=== PATIENT | male | born 1945 | race Caucasian/White ===

== ENCOUNTER → 2017-06-15 10:19 | Outpatient (CLI) | payer MEDICARE, SELFPAY ==
--- NOTE | 2017-06-15 08:00 | PET_ITS ---
EXAMINATION: FDG PET CT INDICATIONS: A 71-year-old male with history of mediastinal adenopathy, pulmonary nodularity. COMPARISON EXAMINATION: None available. INDEX LESION SIZE SUV INTERPRETATION Left upper posterolateral hemithorax pulmonary parenchyma 12.8 mm (frame 229) 2.6 Fulfills quantitative criteria for viable neoplasm, definitive histopathologic analysis is recommended Bilateral upper abdomen retrocrural soft tissue 11.0 mm largest (frame 170) 4.3 (max) Histopathologic investigation recommended secondary to the quantitative degree of uptake NON-INDEX LESION SIZE SUV INTERPRETATION Mediastinal structures, bilateral thoracic perihilum 30.7 mm largest (frame 205) 4.2 (max) Low likelihood of viable neoplasm secondary to prominent soft tissue calcification Right upper-mid abdominal retroperitoneum 37.4 mm largest (frame 148) 5.0 (max) Low likelihood of viable neoplasm secondary to prominent partially-calcified soft tissue Right inguinal region 1.8 Quantitative criteria for viable neoplasm are not fulfilled TECHNIQUE: Following the intravenous administration of 13.03 mCi of F-18 deoxyglucose via the right antecubital fossa, multiplanar image acquisitions of the neck, chest, abdomen and pelvis to level of mid thigh, obtained at one hour post radiopharmaceutical administration contemporaneously interpreted with the current CT of the neck, chest, abdomen and pelvis to level of mid thigh, dated 06/15/17 via coregistration reveal: SERUM GLUCOSE LEVEL: 108 mg/dl. HEIGHT: 72 inches. WEIGHT: 220 lbs. FINDINGS: 1. A nodular focus of increased glucose metabolism is demonstrated in the left upper posterolateral hemithorax anterior to a visualized ametabolic pleural effusion. The calculated maximum standard uptake value is 2.6. A corresponding noncalcified parenchymal density is visualized on review of CT of the thorax dated in the analogous location with a maximal axial diameter of 12.8 mm (transverse). 2. Multifocal increased glucose metabolism is defined in the superior-subcarinal mediastinum and bilateral thoracic perihilar regions generating a calculated maximum standard uptake value of 4.2. The maximal axial diameter of the largest metabolic, morphologic abnormality is approximately 30.7 mm (AP). Uptake corresponds to calcified soft tissue on review of CT of the thorax dated 06/15/17 in the analogous locations. 3. Several foci of increased glucose concentration are demonstrated in the upper abdomen, retrocrural in location on review of CT of the chest-abdomen dated 06/15/17 generating a calculated maximum standard uptake value of . The maximal axial diameter of the of largest noncalcified retrocrural soft tissue density on review of CT of the abdomen dated 06/15/17 is 11.0 mm (AP). 4. There are several foci of increased glucose metabolism manifest in the upper-mid abdominal retroperitoneum corresponding to partially-calcified soft tissue generating a calculated maximum standard uptake value of 5.0. The maximal axial diameter of the largest partially-calcified soft tissue density on review of CT of the abdomen dated 06/15/17 is 37.4 mm (AP). 5. Normal physiologic distribution of the radiopharmaceutical is apparent in the hepatic (2.5) and splenic parenchyma, both renal units, bladder and visualized intestinal tract. There is symmetric and preserved glucose metabolism noted in the visualized portion of the frontal, occipital, temporal and parietal lobes of the cerebral cortex, as well as cerebral hemispheres and basal ganglia. Prominent skeletal muscle and left ventricular myocardial distribution of the radiopharmaceutical concentration is noted. There is evidence of apparent visualization of the right-left hemidiaphragm. Mild increased glucose concentration is defined in the right inguinal region in a single nodular focus with a calculated standard uptake value of 1.8. Pertinent CT findings are as follows. CHEST: Bilateral hemithorax pleural effusions demonstrate no evidence of increased glucose metabolism. Atherosclerotic calcification is defined in the thoracic aorta. The maximal axial diameter of the ascending thoracic aorta is 42.1 mm (transverse). Coronary arterial calcification is observed. Emphysematous change is noted in the bilateral upper lung zones. ABDOMEN AND PELVIS: Atherosclerotic calcification is defined in the abdominal aorta without evidence of dilatation, aneurysm formation. Abdominal-pelvic arterial calcification is observed. Filter placement is noted in the inferior vena cava. There is an apparent large diastasis involving the anterior abdominal-pelvic wall. A visualized right, as well as right and left inguinal soft tissue densities demonstrate no evidence of quantitatively significant increased glucose metabolism. Apparent peripelvic cyst formation is defined in the left kidney with a maximal axial diameter of 58.6 mm. SKELETAL: Degenerative changes defined in the cervical, thoracic and lumbar spine demonstrate no evidence for glucose hypermetabolism. PET/PET/CT Tumor Base -Thigh Init IMPRESSION: 1. Increased glucose metabolism manifest in the left upper posterolateral hemithorax pulmonary parenchyma fulfills quantitative criteria for viable neoplasm with single-point technique. Definitive histopathologic analysis is recommended. (Warren et al, Annals of Internal Medicine, 138:724, 2003). 2. Facilitated glucose concentration visualized in the right upper abdomen corresponding to retrocrural soft tissue densities fulfills quantitative criteria for viable neoplasm with single-point technique. 3. Enhanced glucose concentration observed in the mediastinal structures, bilateral thoracic perihilum corresponding to multifocally calcified soft tissue is consistent with a lower likelihood of viable neoplastic transformation. 4. Augmented glucose concentration defined in the upper-mid abdominal retroperitoneum corresponding to partially-calcified soft tissue is consistent with a lower likelihood of viable neoplasm. 5. Subtle asymmetric increased glucose concentration observed in the right inguinal region does not fulfill quantitative criteria for viable neoplasm. Electronic Signature Ramirez Newton D.O. Electronically Signed: Ramirez Newton DO at 22:34 EST Tel , Service support ,
== END ==
PROVIDERS: Visit Provider Internal Medicine Pulmonary Disease
DX: R59.0 Localized enlarged lymph nodes (principal); R91.8 Other nonspecific abnormal finding of lung field
CPT/HCPCS: 78815; A9552; A4216

== ENCOUNTER → 2023-03-03 | Outpatient (CLI) | payer MEDICARE, MEDICAID, SELFPAY ==
--- NOTE | 2023-03-03 10:06 | US_ITS ---
STUDY: SUPERFICIAL ULTRASOUND - RIGHT CHEST. REASON FOR EXAM: Male, 77 years old. PLEURAL EFFUSION TECHNIQUE: A superficial ultrasound was performed with real-time and static beasley-scale imaging. COMPARISON: None. FINDINGS: Not enough fluid for safe thoracentesis. US/Chest IMPRESSION: Not enough fluid for safe thoracentesis. Electronically Signed: Chris Daugherty MD at 12:36 EST ,
[2023-03-03 11:27] LABS: BNP,B-Type NATRIURETIC PEPTIDE 346.8 pg/mL (0-100)
[2023-03-03 11:37] LABS: Anion Gap 3 (5-15); BUN 22 mg/dL (7-18); BUN/Creat Ratio 24.7 RATIO (10-20); Calcium,Total 9.1 mg/dL (8.5-10.1); Chloride 106 mmol/L (98-107); Creatinine, Serum 0.89 mg/dL (0.70-1.30); EST Glomerular Filtration Rate 88 mL/min (>60); Est Glom Filt Rate - Afr Amer 106 mL/min (>60); Glucose 95 mg/dL (74-106); Potassium 4.5 mmol/L (3.5-5.1); Sodium Level 139 mmol/L (136-145); Thyroid Stim Hormone (TSH) 3.51 uIU/mL (0.358-3.74)
== END | disposition home or self-care (01) ==
LOC: US 09:47
PROVIDERS: Internal Medicine Cardiovascular Disease
DX: J90 Pleural effusion, not elsewhere classified (principal); I50.9 Heart failure, unspecified; R06.02 Shortness of breath; I25.9 Chronic ischemic heart disease, unspecified; R53.83 Other fatigue; R00.2 Palpitations
CPT/HCPCS: 36415; 76604; 80048; 83880; 84443

== ENCOUNTER → 2023-03-20 | Outpatient (CLI) | payer MEDICARE, MEDICAID, SELFPAY ==
--- NOTE | 2023-03-20 10:43 | ECHOD_ITS ---
Reason For Study: SOB Procedure This was a 2D Doppler, Color Flow transthoracic echocardiogram. Exam performed portable in patient room. Left Ventricle Mild concentric left ventricular hypertrophy. Mildly dilated left ventricle. The left ventricular ejection fraction is 50 %. Normal diastology for age. Apical hypokinesis. Right Ventricle Normal right ventricle. Atria The left atrium is moderately enlarged. Normal right atrium. Mitral Valve Moderate (2+) mitral valve insufficiency. Tricuspid Valve Mild tricuspid valve insufficiency. Normal pulmonary artery pressure. Aortic Valve Moderate diffuse aortic valve calcification. Mild aortic stenosis. Moderate (2+) aortic valve insufficiency. Pulmonic Valve The pulmonic valve is not well visualized. Great Vessels Mildly dilated aortic root. Pericardium/Pleural No pericardial effusion. MMode/2D Measurements & Calculations LVIDd: 6.1 cm IVSd: 1.3 cm LVOT diam: 2.1 cm LVIDs: 3.7 cm LVPWd: 1.1 cm LVOT area: 3.6 cm2 RVDd: 3.3 cm FS: 39.6 % Ao root diam: 4.1 cm LAV(MOD-bp): 78.7 ml LVAd ap4: 47.6 cm2 LAV(MOD-bp) Indexed: 37.8 ml/m2 LVLd ap4: 9.5 cm LAV(MOD-sp2): 116.4 ml EDV(MOD-sp4): 196.7 ml LAV(MOD-sp4): 53.8 ml EDV(sp4-el): 202.0 ml LVAs ap4: 28.9 cm2 LVLs ap4: 8.0 cm ESV(MOD-sp4): 84.2 ml ESV(sp4-el): 88.3 ml EF(MOD-sp4): 57.2 % EF(sp4-el): 56.3 % SV(MOD-sp4): 112.4 ml SV(sp4-el): 113.7 ml LA A4 area: 21.0 cm2 LA dimension(2D): 3.4 cm RA A4 area: 14.1 cm2 TAPSE: 2.1 cm Time Measurements MV dec time: 0.26 sec Doppler Measurements & Calculations MV E max alexei: 43.3 cm/sec Lat Peak E' Alexei: 5.1 cm/sec Med Peak E' Alexei: 5.1 cm/sec MV A max alexei: 49.5 cm/sec E/E' lat: 8.5 E/E' med: 8.5 MV E/A: 0.87 MV V2 max: 67.3 cm/sec Ao V2 max: 270.2 cm/sec MV max P.8 mmHg MV dec slope: 167.9 cm/sec2 Ao max P.2 mmHg MV V2 mean: 39.8 cm/sec Ao V2 mean: 195.1 cm/sec MV mean P.75 mmHg Ao mean P.3 mmHg MV V2 VTI: 22.3 cm Ao V2 VTI: 68.3 cm AV (velocity ratio): 0.59 MVA(VTI): 6.5 cm2 JESSICA(I,D): 2.1 cm2 JESSICA(V,D): 2.0 cm2 AI max alexei: 383.0 cm/sec LV V1 max: 153.6 cm/sec SV(LVOT): 144.3 ml AI max P.7 mmHg LV V1 max P.4 mmHg LV V1 mean P.9 mmHg AI dec slope: 212.1 cm/sec2 LV V1 mean: 114.0 cm/sec AI P1/2t: 528.9 msec LV V1 VTI: 40.4 cm PA V2 max: 127.9 cm/sec TR max alexei: 250.2 cm/sec PA V2 mean: 85.6 cm/sec TR max P.0 mmHg ECHO/Echo Complete Interpretation Summary Mild concentric left ventricular hypertrophy. Mildly dilated left ventricle. The left ventricular ejection fraction is 50 %. Apical hypokinesis. The left atrium is moderately enlarged. Moderate (2+) mitral valve insufficiency. Mild tricuspid valve insufficiency. Mild aortic stenosis. Moderate (2+) aortic valve insufficiency. Mildly dilated aortic root. 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 Recommend cardiac MRI for further evaluation. Ordering Physician: [place] Santiago Referring Physician: Berlin Santiago Performed By: Fern Newman RCS
== END | disposition home or self-care (01) ==
LOC: CVS 10:41
PROVIDERS: Referring Provider Internal Medicine Cardiovascular Disease; Visit Provider Internal Medicine Cardiovascular Disease
DX: R06.02 Shortness of breath (principal); J44.9 Chronic obstructive pulmonary disease, unspecified; I50.9 Heart failure, unspecified; I25.9 Chronic ischemic heart disease, unspecified; J90 Pleural effusion, not elsewhere classified
CPT/HCPCS: 93306

== ENCOUNTER → 2023-04-01 | Outpatient (CLI) | payer MEDICARE, MEDICAID, SELFPAY ==
--- NOTE | 2023-04-01 14:32 | RAD_ITS ---
STUDY: X-RAY CHEST REASON FOR EXAM: Male, 77 years old. SOB TECHNIQUE: PA and lateral views of the chest. COMPARISON: None. FINDINGS: There is hyperinflation of the lungs consistent with chronic obstructive lung disease (COPD). Small left pleural effusion with left basilar infiltrate and/or atelectasis. Normal size heart. Normal mediastinum and lila. Normal visualized pulmonary arteries. There is atherosclerotic calcification of the aortic arch with tortuosity. There are mild degenerative changes of the visualized thoracic spine. Normal visualized ribs, clavicles, and shoulders. There is no demonstrated abnormality of the visualized soft tissue structures of the upper abdomen. RAD/Chest PA and Lateral IMPRESSION: Hyperinflation. Small left pleural effusion with left basilar infiltration and/or atelectasis. Electronically Signed: Chris Daugherty MD at 15:15 EST ,
[2023-04-01 15:32] LABS: Anion Gap 2 (5-15); BUN 18 mg/dL (7-18); BUN/Creat Ratio 19.4 RATIO (10-20); Calcium,Total 9.3 mg/dL (8.5-10.1); Chloride 105 mmol/L (98-107); Creatinine, Serum 0.93 mg/dL (0.70-1.30); EST Glomerular Filtration Rate 84 mL/min (>60); Est Glom Filt Rate - Afr Amer 102 mL/min (>60); Glucose 92 mg/dL (74-106); Potassium 4.2 mmol/L (3.5-5.1); Sodium Level 136 mmol/L (136-145)
[2023-04-01 15:33] LABS: BNP,B-Type NATRIURETIC PEPTIDE 399.3 pg/mL (0-100)
== END | disposition home or self-care (01) ==
LOC: LAB 14:21
PROVIDERS: PCP Student in an Organized Health Care Education/Training Program; Referring Provider Internal Medicine Cardiovascular Disease; Visit Provider Internal Medicine Cardiovascular Disease
DX: R06.02 Shortness of breath (principal); J44.9 Chronic obstructive pulmonary disease, unspecified; I50.9 Heart failure, unspecified
CPT/HCPCS: 36415; 71046; 80048; 83880